=== PATIENT | female | born 1985 | race Caucasian/White ===

== ENCOUNTER → 2024-01-10 13:46 | Outpatient (REF) | payer OTHER, BC, SELFPAY | LOC: RAD 13:46 | PROVIDERS: ATTENDING PHYSICIAN Advanced Practice Midwife | DX: R10.2 Pelvic and perineal pain (principal); Z30.431 Encounter for routine checking of intrauterine contraceptive device | CPT/HCPCS: 76830; 76856 ==

== ENCOUNTER 2024-07-22 22:36 | Emergency (ER) | payer OTHER, SELFPAY ==
[2024-07-22 22:40] VITALS: BP 134/98
[2024-07-23] MEDS: TYLENOL 1000 MG PO (00:31)
[2024-07-23 01:08] VITALS: BP 110/70
--- NOTE | 2024-07-23 01:26 | ED.GENMED ---
History of Present Illness
General
Chief Complaint: Fall
Source: patient and spouse
Exam Limitations: none
Time Seen by Provider: 07/23/24 00:37
Nursing documentation reviewed up to this point in time: agreed with
History of Present Illness
History of Present Illness:
This is a 38-year-old woman who has history of ADD, remote history of kidney stones, who states this evening around 9 PM she was attempting to move a large gun safe. She was successful in turning the safe slightly but then lost her balance and fell
backwards onto her back and striking the back of her head. She denies loss of consciousness. Has been up and ambulatory since incident. She complains of moderate global headache and also notes left posterior lateral lower rib pain, left
thoracolumbar back pain that occasionally radiates to her left buttocks. She denies weakness or numbness, no abdominal pain, no chest pain, no dizziness nor lightheadedness, no nausea or vomiting.
She has not taken anything for discomfort.
She did void shortly after arrival to the ED and reports no gross hematuria and no difficulty urinating.
She denies risk of , has IUD in place.
She takes no anticoagulants.
Past History
Past History
ED Past Medical History: Psychiatric (ADD) and Other (Kidney stones)
ED Past Surgical History:
Social History
Tobacco: Non-smoker
Alcohol: None
Drug: None
Personal:
Living: with family
Employment: Employed (Teacher)
Family History
Family History: Other ( noncontributory)
Phy Exam
Physical Exam
Physical Exam:
GENERAL: This is a 38-year-old woman appears her stated age, awake and alert, pleasant, appears mildly uncomfortable, slow to move but able to do so without assistance. is accompanying.
EYE: The head is normocephalic, atraumatic. No palpable scalp tenderness. Pupils equal and reactive. anicteric
NECK: Supple, nontender, full range of motion without difficulty nor pain, no significant adenopathy.
ENT: posterior pharynx is clear, oral mucosa is moist. TM clear b/l, nares patent.
CARDIAC: Regular rate and rhythm. no murmur.
LUNGS: Clear breath sounds bilaterally, no acute respiratory distress, no wheezes/rales/rhonchi
Mild tenderness left posterior lateral distal costal region. No crepitus nor palpable bony abnormality. No evidence of abrasions nor hematoma.
ABDOMEN: Soft, nondistended, without focal tenderness, no r/g, no cvat. normoactive BS.
BACK: No midline bony tenderness. Moderate paravertebral muscle spasm left lower thoracic to mid lumbar paravertebral region with mild to moderate local tenderness to palpation. There is minimal tenderness right lower lumbar region. Straight leg
raising is negative bilaterally.
NEUROLOGICAL: Alert and oriented x3, no focal neuro deficits. Gait is steady.
SKIN: Warm and dry, normal color, skin intact. No rash.
MUSCULOSKELETAL: No C/C/E. peripheral pulses are full and equal b/l. No palpable tenderness.
PSYCH: Normal and appropriate interaction.
Course
Orders/Labs/Results
Orders:
Orders
07/23/24 00:28
CT Head W/o Iv Contrast Urgent
Comment:
Reason For Exam: fall, post head pain/trauma
Acetaminophen [Tylenol] 1,000 mg PO NOW STA
Lumbar Spine Complete, 4 View [CR Lumbar Spine Comp Min 4 Vw*] Urgent
Comment:
Reason For Exam: fall backward, LBP
Ribs, Left 3 View W/PA Chest CR [CR Ribs-left 3 Vw W/pa Chest] Urgent
Comment:
Reason For Exam: left lat rib pain, fall onto back
07/23/24 02:10
Ketorolac [Toradol] 60 mg IM NOW STA
07/23/24 02:21
Urinalysis Urgent
Date Specimen was Collected: 07/23/24
Time Specimen was Collected: 02:21
07/23/24 02:25
Ibuprofen [Motrin] 600 mg .ROUTE .STK-MED ONE
07/23/24 02:26
Ibuprofen [Motrin] 600 mg PO NOW STA
Vital Signs
Initial and Last Documented VS:
Initial Vital Signs
Temp Pulse Resp BP Pulse Ox
98.5 F 90 16 134/98 100
07/22/24 22:40 07/22/24 22:40 07/22/24 22:40 07/22/24 22:40 07/22/24 22:40
Last Documented Vital Signs
Temp Pulse Resp BP Pulse Ox
98.5 F 80 18 110/70 99
07/22/24 22:40 07/23/24 01:08 07/23/24 01:08 07/23/24 01:08 07/23/24 01:08
MDM/Problems Addressed
Differential Diagnosis Includes:
Concern for closed head injury, rib fracture, lumbar spine fracture. Concern for renal contusion.
Will medicate for pain with Tylenol.
Will check CT of the head as well as left rib series with chest x-ray and lumbar spine x-ray.
Will check urinalysis assess for occult hematuria
*Radiology
Radiology exam reviewed: preliminary read by ED provider (Left rib series/chest x-ray and lumbar spine x-rays are all within normal limits. No evidence of fracture. No pneumothorax. Clear lung lassiter.) and radiology read reviewed (CT of the head
is unremarkable)
*Pulse Oximetry
Patient hypoxic: no
*Critical Care Note
Total Time (30-74mins, 75-104mins- exclusive of procedures): Not Applicable
Update Note
Update Note:
02:05
Patient sleeping soundly upon reevaluation.
Once awake she continues with mild headache, continues with some back pain but is able to move about on stretcher with ease.
CT of the head is unremarkable.
Left rib series, chest x-ray is unremarkable as is lumbar spine film.
Will give an IM dose of Toradol.
Urinalysis is pending.
03:10
Urinalysis is unremarkable.
Patient declined Toradol but excepted a dose of ibuprofen instead.
Feeling improved. Eager to be discharged to home.
Recommend supportive measures, continuing NSAID for as needed pain and a prescription for ibuprofen has been sent to her pharmacy.
Rest, ice for the first 1 to 2 days and then transition to heat.
Follow-up with PCP for recheck.
ED Attending Note
-
Portions of this chart may have been created with voice recognition software.� Occasional wrong word or��sound alike� substitutions may have occurred due to the inherent limitations of voice recognition software.
Discharge Plan
Departure
Patient Disposition: Home (Routine Discharge)
Date of Disposition: 07/23/24
Time of Disposition: 03:16
Patient with high blood pressure during this ER visit?: No
Condition: Good
Discharge Problem:
Minor closed head injury, Contusion of back
Instructions: Concussion, Adult (DC), Contusion (DC)
Prescriptions:
New
ibuprofen 600 mg tablet
600 mg PO QID PRN (Reason: fever or pain) Qty: 20 0RF
No Action
cetirizine 10 MG tablet
10 mg PO DAILY
Adderall
PO
Referrals:
Anastasia Maier CRNP [Family Provider] - Call in 1-3 days for appt
Interventions
Interventions:
*Risk Screen - Suicide Last Done: 07/22/24 22:40
*General Assessment Last Done: 07/23/24 03:21
*Neglect/Abuse Screening Last Done: 07/22/24 22:40
ED- Fall Risk Assessment Last Done: 07/23/24 00:13
*ED COVID-19 Vaccine History Last Done: 07/23/24 00:35
*Nursing Disposition Last Done: 07/23/24 03:21
ED-Musculoskeletal Assessment Last Done: 07/23/24 00:13
ED- Neurological Assessment Last Done: 07/23/24 00:13
ED-Skin Assessment Last Done: 07/23/24 00:13
Discharge Date and Time
Discharge Date/Time: 07/23/24 03:22
Print Language: ITALIAN
[2024-07-23] MEDS: MOTRIN 600 MG PO (02:26)
[2024-07-23 02:38] LABS: Urine Albumin Negative (Neg - Trace); Urine Bilirubin Negative (Negative); Urine Character Clear (Clear); Urine Color Yellow; Urine Glucose Negative (Negative); Urine Ketone Negative (Negative); Urine Leukocyte Negative (Negative); Urine Nitrite Negative (Negative); Urine Occult Blood Negative (Negative); Urine Urobilinogen Negative (Neg - 1+); Urine pH 6.5 (5.0-9.0)
== END 2024-07-23 03:22 | disposition home or self-care (01) ==
LOC: EMR 22:36
PROVIDERS: EMERGENCY PHYSICIAN Emergency Medicine; FAMILY PHYSICIAN Nurse Practitioner Family
DX: S09.90XA Unspecified injury of head, initial encounter (principal); S30.0XXA Contusion of lower back and pelvis, initial encounter; M62.830 Muscle spasm of back; W19.XXXA Unspecified fall, initial encounter; Z87.442 Personal history of urinary calculi
CPT/HCPCS: 99284; 70450; 71101; 72110; 81003